=== PATIENT | male | born 1980 | race African-American/Black ===

== ENCOUNTER 2021-07-27 18:28 | Emergency (ER) | payer SELFPAY ==
[~2021-07-27] VITALS: Ht 167.6 cm; Wt 65.5 kg
[2021-07-27 18:44] VITALS: BP 134/77
--- NOTE | 2021-07-27 20:20 | NUR ---
NA X 1
--- NOTE | 2021-07-27 20:51 | NUR ---
NA X2
--- NOTE | 2021-07-27 21:09 | NUR ---
NA X 3
== END 2021-07-27 21:11 | disposition left against medical advice (07) ==
LOC: ED 19:00
DX: L98.8 Other specified disorders of the skin and subcutaneous tissue (principal)
CPT/HCPCS: 99281